=== PATIENT | female | born 1980 | race Caucasian/White ===

== ENCOUNTER 2022-02-06 15:13 | Emergency (ER) | payer OTHER ==
[2022-02-06] MEDS ORDERED: BEBTELOVIMAB 175 MG/2 ML VIAL IV ONE (16:46)
[2022-02-06] MEDS ORDERED: dexAMETHasone 10 MG/ML VIAL ONE (16:46)
[2022-02-06] MEDS ORDERED: ACETAMINOPHEN 325 MG TABLET ONE (16:59)
--- NOTE | 2022-02-06 18:13 | EDPHYS ---
Physician Documentation [facility] Name: Fay Fox Age: 41 yrs Sex: Female : 1980 Arrival Date: 02/06/2022 Time: 15:15 Bed 27 Private MD: Teodora Corado ED Physician Cynthia Pedroza HPI: 02/06 16:02 This 41 yrs old Female presents to ER via Ambulatory with complaints of Covid+,Strep+, jmm Breathing Difficulty, Body Aches, Fever. 16:02 The patient or guardian reports cough. Onset: The symptoms/episode began/occurred jmm gradually. Modifying factors: The symptoms are alleviated by nothing. the symptoms are aggravated by nothing. Associated signs and symptoms: Pertinent positives: fever, sore throat. The patient has experienced similar episodes in the past. Historical: - Allergies: 15:33 Compazine; hb - Home Meds: 15:33 Plaquenil Oral [Active]; Embrel [Active]; hb - Immunization history:: Adult Immunizations up to date, Client reports having NOT received the Covid vaccine. - Social history:: Smoking status: Patient denies any tobacco usage or history of. ROS: 16:02 Constitutional: Positive for body aches, chills, fever. jmm 16:02 ENT: Positive for sore throat. 16:02 Respiratory: Positive for cough, shortness of breath. 16:02 All other systems are negative. Exam: 16:02 Constitutional: This is a well developed, well nourished patient who is awake, alert, jmm and in no acute distress. Head/Face: atraumatic. Eyes: EOMI, no conjunctival erythema appreciated ENT: Moist Mucus Membranes Neck: Trachea midline, Supple Chest/axilla: Normal chest wall appearance and motion. Cardiovascular: Regular rate and rhythm. No edema appreciated Respiratory: Normal respirations, no respiratory distress appreciated Abdomen/GI: Non distended Back: Normal ROM Skin: General appearance color normal MS/ Extremity: Moves all extremities, no obvious deformities appreciated, no edema noted to the lower extremities Neuro: Awake and alert Psych: Behavior is normal, Mood is normal, Patient is cooperative and pleasant Vital Signs: 15:31 BP 125 / 83; Pulse 120; Resp 18; Temp 98.8; Pulse Ox 99% on R/A; Weight 65.77 kg; hb Height 5 ft. 7 in. (170.18 cm); Pain 8/10; 15:31 Body Mass Index 22.71 (65.77 kg, 170.18 cm) hb MDM: 16:02 Patient medically screened. [facility] 18:10 Data reviewed: vital signs, nurses notes. Counseling: I had a detailed discussion with jmtito the patient and/or guardian regarding: the historical points, exam findings, and any diagnostic results supporting the discharge/admit diagnosis, the need for outpatient follow up, to return to the emergency department if symptoms worsen or persist or if there are any questions or concerns that arise at home. 02/06 16:02 Order name: Saline Lock; Complete Time: 16:59 [facility] Administered Medications: 16:59 Drug: Bebtelovimab 1 application Route: IV; Rate: calculated rate; Site: right rodriguez antecubital; 16:59 Drug: Decadron - Dexamethasone 10 mg Route: IVP; Site: right antecubital; rodriguez 16:59 Follow up: Response: No adverse reaction rodriguez 16:59 Drug: Acetaminophen 650 mg Route: PO; rodriguez 16:59 Follow up: Response: No adverse reaction rodriguez Disposition: 18:50 Co-signature as Attending Physician, Cynthia Pedroza MD STAFF ATTESTATION STATEMENT I sd2 was immediately available on-site in the Emergency Department for consultation in the care of the patient. Cynthia Pedroza MD. Disposition Summary: 02/06/22 18:13 Discharge Ordered Location: Home jm Condition: Stable [facility] Diagnosis - Coronavirus infection, unspecified [facility] Followup: [facility] - With: Private Physician - When: 2 - 3 days - Reason: Recheck today's complaints, Continuance of care, Re-evaluation by your physician Discharge Instructions: - Discharge Summary Sheet [facility] Forms: - Medication Reconciliation Form [facility] - Thank You Letter [facility] - Antibiotic Education [facility] - Prescription Opioid Use [facility] Prescriptions: - albuterol sulfate 90 mcg/actuation Inhalation HFA aerosol inhaler - inhale 2 puff by INHALATION route every 4 hours; 1 Pump; Refills: 0, Product [facility] Selection Permitted Signatures: Vin Burnham PA PA jmm Baxter, Heather, RN RN Au-Stager, Faby, RN RN rodriguez Yovany, Cynthia, MD MD sd2
--- NOTE | 2022-02-06 18:13 | ER ---
Nurse's Notes [facility] Name: Fay Fox Age: 41 yrs Sex: Female : 1980 Arrival Date: 02/06/2022 Time: 15:15 Bed 27 Private MD: Teodora Corado Diagnosis: Coronavirus infection, unspecified Presentation: 02/06 15:31 Chief complaint: Sore throat, SOB, body aches, cough, headache, and fever x 4 days. hb Tested strep+ 3 days ago, COVID+ today. TMAX 101.6. Takes Embrel and plaquenil. Coronavirus screen: Client presents with at least one sign or symptom that may indicate coronavirus-19. Standard/surgical mask placed on the client. Provider contacted for isolation considerations. Ebola Screen: No symptoms or risks identified at this time. Initial Sepsis Screen: Does the patient meet any 2 criteria? No. Patient's initial sepsis screen is negative. Does the patient have a suspected source of infection? No. Patient's initial sepsis screen is negative. Risk Assessment: Do you want to hurt yourself or someone else? Patient reports no desire to harm self or others. Onset of symptoms was February 03, 2022. 15:31 Method Of Arrival: Ambulatory hb 15:31 Acuity: LUCY 3 hb Triage Assessment: 17:10 General: Appears uncomfortable, Behavior is anxious. Respiratory: Onset: The rodriguez symptoms/episode began/occurred gradually, the patient has moderate shortness of breath. Historical: - Allergies: 15:33 Compazine; hb - Home Meds: 15:33 Plaquenil Oral [Active]; Embrel [Active]; hb - Immunization history:: Adult Immunizations up to date, Client reports having NOT received the Covid vaccine. - Social history:: Smoking status: Patient denies any tobacco usage or history of. Screenin:09 Abuse screen: Denies threats or abuse. Denies injuries from another. Nutritional rodriguez screening: No deficits noted. Tuberculosis screening: No symptoms or risk factors identified. Fall Risk None identified. Assessment: 17:08 Pain: Complains of pain in generalize pain. Cardiovascular: Rhythm is regular. rodriguez Respiratory: Airway is patent Respiratory effort is even, unlabored, Breath sounds are clear bilaterally. EENT: Throat is reddened Reports pain when swallowing Pain is 7 out of 10 on a pain scale. 17:10 Reassessment: pt reports recent dx of strep and took a home covid test and it was rodriguez positive. d/t pt having immunocompromised pt consent to having Bebtelovimab. Vital Signs: 15:31 BP 125 / 83; Pulse 120; Resp 18; Temp 98.8; Pulse Ox 99% on R/A; Weight 65.77 kg; hb Height 5 ft. 7 in. (170.18 cm); Pain 8/10; 15:31 Body Mass Index 22.71 (65.77 kg, 170.18 cm) hb ED Course: 15:15 Patient arrived in ED. mr 15:17 MakTeodora is Private Physician. mr 15:18 Vin Burnham [facility] 15:18 Cynthia Pedroza MD is Attending Physician. [facility] 15:33 Triage completed. hb 15:33 Arm band placed on. 15:38 Faby Whatley RN is Primary Nurse. rodriguez 17:09 Patient has correct armband on for positive identification. Bed in low position. rodriguez 17:09 No provider procedures requiring assistance completed. Inserted saline lock: 20 gauge rodriguez in right antecubital area, using aseptic technique. 18:45 Patient did not have IV access during this emergency room visit. IV discontinued. rodriguez Administered Medications: 16:59 Drug: Bebtelovimab 1 application Route: IV; Rate: calculated rate; Site: right rodriguez antecubital; 16:59 Drug: Decadron - Dexamethasone 10 mg Route: IVP; Site: right antecubital; 16:59 Follow up: Response: No adverse reaction rodriguez 16:59 Drug: Acetaminophen 650 mg Route: PO; rodriguez 16:59 Follow up: Response: No adverse reaction rodriguez Medication: 17:10 VIS not applicable for this client. rodriguez Outcome: 18:13 Discharge ordered by . [facility] 18:45 Discharged to home ambulatory. rodriguez 18:45 Condition: good 18:45 Discharge instructions given to patient. 18:45 Patient left the ED. rodriguez Signatures: Vin Burnham PA PA jmm Rivera, Mary mr Faby Nava RN RN Faby Whatley RN RN rodriguez
[2022-02-06 20:05] VITALS: BP 125/83; TEMP 98.8; O2SAT 99
== END 2022-02-06 18:45 | disposition home or self-care (01) ==
LOC: ER 15:13
DX: U07.1 COVID-19 (principal); Z88.8 Allergy status to other drugs, medicaments and biological substances
CPT/HCPCS: 96375; 96374; 99283; J1100